=== PATIENT | male | born 1995 | race African-American/Black ===

== ENCOUNTER 2017-03-15 21:45 | Emergency (ER) | payer OTHER ==
[~2017-03-15] VITALS: Ht 180.3 cm; Wt 67.1 kg
[2017-03-15 23:51] LABS: URINE SOURCE CLEAN CATCH
[2017-03-16 00:01] LABS: URINE APPEARANCE CLOUDY; URINE BILIRUBIN NEG (NEG); URINE BLOOD NEG (NEG); URINE COLOR YELLOW; URINE GLUCOSE NEG (NEG); URINE KETONE TRACE (NEG); URINE LEUKOCYTE ESTERASE 3+ (NEG); URINE NITRATE NEG (NEG); URINE PROTEIN NEG (NEG); URINE SPECIFIC GRAVITY 1.023 (1.003-1.035)
[2017-03-16 00:03] LABS: CULTURE INDICATED? YES; URBCS1 AUWI 0-2 /[HPF] (0-2); URINE SQUAMOUS EPITHELIAL CELL NONE SEEN /[HPF]; UWBCS1 AUWI 100-200 (0-5)
[2017-03-16 00:18] LABS: URINE BACTERIA AUWI 1+ (NEGATIVE)
[2017-03-16 00:20] LABS: URINE MUCUS PRESENT
[2017-03-19 09:22] LABS: CHLAMYDIA TRACH Not Detected (Not Detected); N GONOR Not Detected (Not Detected)
== END 2017-03-16 00:50 | disposition home or self-care (01) ==
LOC: CFTX 21:45 → CED 21:45 → CFTX 23:59
PROVIDERS: Nurse Practitioner
DX: A64 Unspecified sexually transmitted disease (principal); N39.0 Urinary tract infection, site not specified
CPT/HCPCS: 81003; 87086; 87491; 87591; 96372; 99283; J0696